=== PATIENT | male | born 1950 | race Caucasian/White ===

== ENCOUNTER 2024-05-26 07:34 | Day surgery (SDC) | payer BC ==
[2024-05-25 15:36] VITALS: BMI 30.4
[2024-05-26] MEDS ORDERED: Iopamidol 300 61% 100 ML VIAL FS ONE (09:13)
[2024-05-26] MEDS ORDERED: Lidocaine 1% (PF) 30 ML VIAL ONE (09:15)
[2024-05-26] MEDS ORDERED: Adenosine 6 mg (2 mL) VIAL ONE (09:15)
[2024-05-26] MEDS ORDERED: Heparin 10,000 UNITS/ 10 ML VIAL ONE (09:15)
[2024-05-26] MEDS ORDERED: Nitroglycerin 50 MG/250 ML BOT 0 ML ONE (09:15)
[2024-05-26] MEDS ORDERED: Verapamil 5 MG/2 ML VIAL ONE (09:15)
[2024-05-26] MEDS ORDERED: Midazolam HCl 2 mg/2 ml Vial ONE (09:16)
[2024-05-26] MEDS ORDERED: fentaNYL 50 mcg/mL 1 mL Vial ONE (09:16)
== END 2024-05-26 12:22 | disposition short-term general hospital (02) ==
LOC: CSHCCL 07:34
PROVIDERS: ATTEND Specialist
PROC: B205YZZ Plain Radiography of Left Heart using Other Contrast (ICD-10-PCS; principal; 2024-05-26)
PROC: 4A023N7 Measurement of Cardiac Sampling and Pressure, Left Heart, Percutaneous Approach (ICD-10-PCS; principal; 2024-05-26)
DX: I25.110 Atherosclerotic heart disease of native coronary artery with unstable angina pectoris (principal); R94.39 Abnormal result of other cardiovascular function study; I50.20 Unspecified systolic (congestive) heart failure; I11.0 Hypertensive heart disease with heart failure; E78.5 Hyperlipidemia, unspecified; K21.9 Gastro-esophageal reflux disease without esophagitis; Z90.49 Acquired absence of other specified parts of digestive tract; Z98.49 Cataract extraction status, unspecified eye
CPT/HCPCS: 93306; 93459; 99152; C1769; C1894; J0153; J1644; J2001; J2250; J3010; Q9967

== ENCOUNTER 2024-07-12 09:34 | Outpatient (CLI) | payer BC | END 2024-07-12 09:35 | disposition home or self-care (01) | LOC: CSHRAD 09:34 | PROVIDERS: ATTEND Specialist | DX: J90 Pleural effusion, not elsewhere classified (principal) | CPT/HCPCS: 71046 ==

== ENCOUNTER 2025-06-20 13:05 | Outpatient (CLI) | payer BC | END 2025-06-20 13:06 | disposition home or self-care (01) | LOC: CSHULT 13:05 | PROVIDERS: ATTEND Internal Medicine | DX: N28.1 Cyst of kidney, acquired (principal); N28.89 Other specified disorders of kidney and ureter; N32.9 Bladder disorder, unspecified | CPT/HCPCS: 76775 ==